=== PATIENT | male | born 1975 | race Hispanic/Latino ===

== ENCOUNTER 2016-03-14 16:48 | Emergency (ER) | payer OTHER ==
[~2016-03-14] VITALS: Ht 177.8 cm; Wt 84.1 kg
[2016-03-14 16:52] VITALS: BP 136/81; PULSE 91; RESP 20; O2SAT 99
--- NOTE | 2016-03-14 17:53 | DRSVH ---
PROCEDURE: X-RAY CHEST, TWO VIEWS ([id number]) INDICATIONS: 40-year-old male status post 20 foot fall from ladder. TECHNIQUE: 2 views of the chest were acquired. COMPARISON: None. FINDINGS: Surgical changes and devices: None. Lungs and pleura: No pleural effusions or pneumothorax. Lungs are clear. Mediastinum: Mediastinal contours are normal. Heart size is normal. Bones and chest wall: No suspicious bony abnormalities. Soft tissues appear unremarkable. IMPRESSION: No acute cardiopulmonary disease. Dictated by: Dorian Devine M.D. on 03/14/2016 at 17:52 Approved by: Dorian Devine M.D. on 03/14/2016 at 17:52
--- NOTE | 2016-03-14 17:53 | DRSVH ---
PROCEDURE: X-RAY THORACIC SPINE, 2 VIEWS INDICATIONS: 40 year-old male with 20 foot fall from ladder. TECHNIQUE: The 3 views of the thoracic spine were acquired. COMPARISON: None. FINDINGS: Bones: No fractures or dislocations. No suspicious bony lesions. 12 pairs of ribs are noted, and ap pear intact where visualized. Soft tissues: No paravertebral stripe thickening. IMPRESSION: No acute bony injuries of the thoracic spine. Dictated by: Dorian Devine M.D. on 03/14/2016 at 17:51 Approved by: Dorian Devine M.D. on 03/14/2016 at 17:51
--- NOTE | 2016-03-14 19:33 | ED.REPORT ---
HPI-Trauma Minor / Fall Date of Service Mar 14, 2016 ED Provider: Doc,Ed MD History of Present Illness: slipped off roof fall about 18 feet landing on side and back, landing on styro foam board and dirt. home injury, no loc. normally healthy 6/10 no meds primary care is no one. Nursing Notes Stated Complaint: BACK PAIN AFTER FALL Chief Complaint: Multiple Trauma/Fall Nursing Notes Reviewed: Yes Allergies: Coded Allergies: No Known Allergies (Unverified , 03/14/16) General Time Seen by MD: 19:31 Chief Complaint Fall Hx Obtained From: Patient Onset Occurred: 1 - 4 hours ago Symptom Duration: Since onset Caused by: Accidental Context: Occurred at: Home injury Location: Back Severity: Current: Pain level 6 out of 10 Past Medical History Past Medical History Denies: Asthma, Diabetes mellitus Past Surgical History denies Smoking History Never Smoker Social History Alcohol Use: Denies alcohol use Drug Use: Denies drug use Occupation live by self work at [employer] 03/14/2016 Review of Systems Basic Review of Systems Cardiovascular: No chest pain, No dyspnea on exertion, No orthopnea, No parox noct dyspnea, No palpitations GI: No abdominal pain, No anorexia, No nausea, No vomiting : No dysuria, No frequency Hematologic: No bleeding, No bruising Endocrine: No cold intolerance, No heat intolerance, No weight gain, No weight loss Allergy / Immune: No allergy Psychiatric: Normal thought content Physical Exam Initial Vital Signs Vital Signs (First) Date Time Temp Pulse Resp B/P Pulse Ox O2 Delivery O2 Flow Rate FiO2 03/14/16 16:52 37.1 91 20 136/81 99 Room Air Initial VS: Reviewed, Vital signs normal Head / Eyes: Atraumatic, Normocephalic, PERRL ENT: Mucous membranes moist, Conjunctiva normal, No scleral icterus Respiratory: Breath sounds normal, Clear to auscultation, No respiratory distress Cardiovascular: Regular rate & rhythm, Heart sounds normal, Intact distal pulses Abdomen / GI: Soft, Non-tender, No guarding, No rebound, No distention Back: No CVA tenderness Lymphatic: No lymphadenopathy Extremities: Vascular intact, Neuro intact, No swelling, No tenderness Skin: Warm, Dry, No cyanosis Neurologic: Alert, Oriented, Nonfocal Psychiatric: Mood/affect normal, Behavior normal, Normal thought content General/Constitutional: Awake, Alert, No acute distress, Well appearing, Well developed, Well hydrated Neck: Atraumatic, Supple, No meningismus, Full range of motion, No adenopathy, No swelling, Non-tender, No midline vertebral tend, No masses, No crepitus, No JVD, No carotid bruit ENT: Atraumatic, Airway patent, Mucous membranes moist, Pharynx NL Respiratory / Chest: Atraumatic, Breath sounds NL, Breath sounds = bilat Cardiovascular: Heart rate NL, Regular rhythm, Heart sounds NL, No gallop Abdomen: Atraumatic, Soft, Non-tender, McBurney's non-tender Back: Atraumatic, Inspection NL, Full range of motion, Painless range of motion , Non-tender, No midline vertebral tend, No paraspinal tenderness Upper Extremity / MS: Atraumatic, Inspection NL, Full range of motion, No swelling, Non-tender Interpretation & Diagnostics Interpretation & Diagnostics: COMPARISON: None. FINDINGS: Bones: No fractures or dislocations. No suspicious bony lesions. 12 pairs of ribs are noted, and appear intact where visualized. Soft tissues: No paravertebral stripe thickening. IMPRESSION: No acute bony injuries of the thoracic spine. X-Ray Chest Interpretation Chest Xray Interpretation: Surgical changes and devices: None. Lungs and pleura: No pleural effusions or pneumothorax. Lungs are clear. Mediastinum: Mediastinal contours are normal. Heart size is normal. Bones and chest wall: No suspicious bony abnormalities. Soft tissues appear unremarkable. IMPRESSION: No acute cardiopulmonary disease. Dictated by: Dorian Devine M.D. on Discharge & Departure Impression: Primary Impression: Fall Encounter type: initial encounter Qualified Code: W19.XXXA - Unspecified fall, initial encounter Additional Impression: Back sprain Disposition: Home Patient Instructions: Low Back Strain (DC) Additional Instructions: The x-rays are negative for any sign of bony damage. The exam is reassuring. Note for off work written for 2 days. Use ibuprofen 800 mg 3 times a day for 5 days. Use hydrocodone 1 up to 2 times a day as needed for severe unrelenting pain. #10. No working with this medication. Referrals: [facility] EDSupervising Provider for APC: Raya Ybarra MD copies to: [facility] Mary Jane Hurtado Mar 14, 2016 19:33
== END 2016-03-14 19:45 | disposition home or self-care (01) ==
LOC: SED 16:48
DX: S33.5XXA Sprain of ligaments of lumbar spine, initial encounter (principal); W13.2XXA Fall from, out of or through roof, initial encounter; Y93.9 Activity, unspecified; Y92.008 Other place in unspecified non-institutional (private) residence as the place of occurrence of the external cause; Y99.8 Other external cause status